=== PATIENT | male | born 1975 | race Caucasian/White ===

== ENCOUNTER 2017-03-03 22:53 | Emergency (ER) | payer BC, OTHER ==
[2017-03-03 23:05] VITALS: BP 130/92; PULSE 74; TEMP 97.7; BMI 26.9
--- NOTE | 2017-03-03 23:38 | PDOC ---
History of Present Illness - General Chief Complaint: Pain, Acute Stated Complaint: ABDOMINAL PAIN Time Seen by Provider: 03/03/17 23:37 - History of Present Illness Initial Comments: 03/03/17 23:37 Mr. Metzger is a 41 yo male with a significant past medical history of appendectomy who presents to the emergency department with a 3 day history of dull abdominal pain starting at his belly button and "going up." He says that he has never had pain like this before and that he just wants to get checked out. Denies any other symptoms. The patient denies chest pain, shortness of breath, headache and dizziness. Denies fever, chills, nausea, vomit, diarrhea and constipation. Denies dysuria, frequency, urgency and hematuria. Allergies: codeine, penicillins, sulfa, peanuts Past surgical history: Appendectomy Past History - Past Medical History Allergies/Adverse Reactions: Allergies Allergy/AdvReac Type Severity Reaction Status Date / Time codeine [Codeine] Allergy Verified 03/03/17 23:01 Penicillins Allergy Verified 03/03/17 23:01 Sulfa (Sulfonamide Allergy Verified 03/03/17 23:01 Antibiotics) [Sulfa(Sulfonamide Antibiotics)] peanuts AdvReac Severe Swelling Uncoded 03/03/17 23:01 Home Medications: Ambulatory Orders Calcium Carbonate [Tums] 200 mg PO ASDIR 03/03/17 - Surgical History Appendectomy: Yes - Suicide/Smoking/Psychosocial Hx Smoking Status: No Smoking History: Never smoked Have you smoked in the past 12 months: No Number of Cigarettes Smoked Daily: 0 Hx Alcohol Use: No Substance Use Type: None Review of Systems - Review of Systems Comments:: 03/03/17 23:38 GENERAL/CONSTITUTIONAL: No fever or chills. No weakness. HEAD, EYES, EARS, NOSE AND THROAT: No change in vision. No ear pain or discharge. No sore throat. CARDIOVASCULAR: No chest pain or shortness of breath RESPIRATORY: No cough, wheezing, or hemoptysis. GASTROINTESTINAL: +Adbominal pain at umbilicus and abdove. No nausea, vomiting, diarrhea or constipation. GENITOURINARY: No dysuria, frequency, or change in urination. MUSCULOSKELETAL: No joint or muscle swelling or pain. No neck or back pain. SKIN: No rash NEUROLOGIC: No headache, vertigo, loss of consciousness, or change in strength/ sensation. ENDOCRINE: No increased thirst. No abnormal weight change HEMATOLOGIC/LYMPHATIC: No anemia, easy bleeding, or history of blood clots. ALLERGIC/IMMUNOLOGIC: No hives or skin allergy. *Physical Exam - Vital Signs Last Vital Signs Temp Pulse Resp BP Pulse Ox 97.7 F 74 18 130/92 99 03/03/17 23:05 03/03/17 23:05 03/03/17 23:05 03/03/17 23:05 03/03/17 23:05 - Physical Exam Comments: 03/03/17 23:38 GENERAL: Awake, alert, and fully oriented, in no acute distress HEAD: No signs of trauma, normocephalic, atraumatic EYES: PERRLA, EOMI, sclera anicteric, conjunctiva clear ENT: Auricles normal inspection, hearing grossly normal, nares patent, oropharynx clear without exudates. Moist mucosa NECK: Normal ROM, supple, no lymphadenopathy, JVD, or masses LUNGS: No distress, speaks full sentences, clear to auscultation bilaterally HEART: Regular rate and rhythm, normal S1 and S2, no murmurs, rubs or gallops, peripheral pulses normal and equal bilaterally. ABDOMEN: +Minimally tender diffusely. Soft, normoactive bowel sounds. No guarding, no rebound. No masses EXTREMITIES: Normal inspection, Normal range of motion, no edema. No clubbing or cyanosis. NEUROLOGICAL: Cranial nerves II through XII grossly intact. Normal speech, normal gait, no focal sensorimotor deficits SKIN: Warm, Dry, normal turgor, no rashes or lesions noted. ED Treatment Course - LABORATORY CBC & Chemistry Diagram: 03/04/17 00:00 03/04/17 00:00 Medical Decision Making - Medical Decision Making 03/04/17 01:40 Mr. Metzger presents with 3 days of dull abdominal ache unrelieved by OTC medications. Labs and UA clear as below. GI cocktail administered. 03/04/17 01:59 Patient achieved some relief of symptoms with GI cocktail, would like to go home. Will discharge with instructions to f/u as needed with PCP outpatient. Laboratory Results - last 24 hr 03/04/17 03/04/17 03/04/17 00:00 00:00 01:00 WBC 5.9 RBC 4.73 Hgb 14.9 Hct 43.3 MCV 91.5 MCH 31.6 MCHC 34.5 RDW 12.5 Plt Count 221 MPV 8.5 Neutrophils % 58.3 Lymphocytes % 28.3 D Monocytes % 10.2 Eosinophils % 2.8 Basophils % 0.4 Sodium 139 Potassium 4.3 Chloride 101 Carbon Dioxide 30 Anion Gap 8 BUN 17 D Creatinine 1.2 Creat Clearance w eGFR > 60 Random Glucose 103 Calcium 9.5 Total Bilirubin 0.6 D AST 13 L ALT 27 Alkaline Phosphatase 67 D Total Protein 7.1 Albumin 3.9 Lipase 179 Urine Color Straw Urine Appearance Clear Urine pH 7.0 Urine Protein Negative Urine Glucose (UA) Negative Urine Ketones Negative Urine Blood Negative Urine Nitrite Negative Urine Bilirubin Negative Urine Urobilinogen Negative *DC/Admit/Observation/Transfer Diagnosis at time of Disposition: Gastroesophageal reflux disease Qualifiers: Esophagitis presence: esophagitis presence not specified Qualified Code(s): K21.9 - Gastro-esophageal reflux disease without esophagitis; K21.9 - Gastro- esophageal reflux disease without esophagitis; K21.9 - Gastro-esophageal reflux disease without esophagitis - Discharge Dispostion Disposition: HOME - Patient Instructions Printed Discharge Instructions: DI for Gastroesophageal Reflux Disease (GERD)
--- NOTE | 2017-03-03 23:47 | PDOC ---
Attending Attestation - HPI HPI: 03/03/17 23:53 41yo M with a significant past medical history of appendectomy, and presents to the emergency department with abdominal pain for 4 days. He reports the pain is dull, and located at the belly radiating up. He states he has taken Tums and Zantac with no significant relief. He denies any changes in his diet or bowel movements. The patient denies chest pain, shortness of breath, headache and dizziness. The patient denies fever, chills, nausea, vomit, diarrhea and constipation. The patient denies dysuria, frequency, urgency and hematuria. Allergies: codeine, penicillins, sulfa, peanuts Past Surgical History: appendectomy Social History: No toxic habits reported PCP: Dr. Zackery Chapa <Aura Dawson - Last Filed: 03/03/17 23:53> - Resident Resident Name: TejasManuel tejeda - ED Attending Attestation I have performed the following: I have examined & evaluated the patient, The case was reviewed & discussed with the resident, I agree w/resident's findings & plan, Exceptions are as noted - Physicial Exam PE: 03/04/17 02:00 *Physical Exam General Appearance: Yes: Appropriately Dressed. No: Apparent Distress, Intoxicated HEENT: positive: EOMI, ISABELLA, Normal ENT Inspection, Normal Voice, TMs Normal, Pharynx Normal. negative: Pale Conjunctivae, Photophobia, Scleral Icterus (R), Scleral Icterus (L) Neck: positive: Trachea midline, Normal Thyroid, Supple. negative: Tender, Rigid, Carotid bruit, Stridor, Lymphadenopathy (R), Lymphadenopathy (L), Thyromegaly Respiratory/Chest: positive: Lungs Clear, Normal Breath Sounds. negative: Chest Tender, Respiratory Distress, Accessory Muscle Use, Labored Respiration, RES, Crackles, Rales, Rhonchi, Stridor, Wheezing, Dullness Cardiovascular: positive: Regular Rhythm, Regular Rate, S1, S2. negative: Edema , JVD, Murmur, Bradycardia, Tachycardia Vascular Pulses: Dorsalis-Pedis (R): 2+, Doralis-Pedis (L): 2+ Gastrointestinal/Abdominal: positive: Normal Bowel Sounds, Flat, Soft. negative : Tender, Organomegaly, Pulsatile Mass, Increased Bowel Sounds, Decreased BS, Distended, Guarding, Rebound, Hernia, Hepatomegaly, Spleenomegaly Lymphatic: negative: Adenopathy, Tenderness Musculoskeletal: positive: Normal Inspection. negative: CVA Tenderness, Decreased Range of Motion Extremity: positive: Normal Capillary Refill, Normal Inspection, Normal Range of Motion, Pelvis Stable. negative: Tender, Pedal Edema, Swelling, Erythema Integumentary: positive: Normal Color, Dry, Warm. negative: Cyanotic, Erythema , Jaundice, Rash Neurologic: positive: folding machine setter II-XII NML intact, Fully Oriented, Alert, Normal Mood/ Affect, Motor Strength 5/5. negative: EOM Palsy, Facial Droop, Sensory Deficit <Rl Rios - Last Filed: 03/04/17 02:01>
[2017-03-03] MEDS ORDERED: SODIUM CHLORIDE 1,000 ML IV STA (23:48)
[2017-03-04 00:17] LABS: BASOPHIL 0.4 % (0-2.0); EOSINOPHIL 2.8 % (0-4.5); MCH 31.6 pg (25.7-33.7); MCHC 34.5 g/dl (32.0-35.9); MEAN CELL VOLUME 91.5 fl (80-96); MEAN PLT VOLUME 8.5 fl (7.5-11.1); NEUTROPHILS 58.3 % (42.8-82.8); PLATELET COUNT 221 K/MM3 (134-434); RDW 12.5 % (11.9-15.9); WHITE BLOOD COUNT 5.9 K/mm3 (4.0-10.0)
[2017-03-04 00:41] LABS: ALBUMIN 3.9 g/dl (3.4-5.0); ALK PHOS 67 U/L (45-117); ANION GAP 8 (8-16); BILIRUBIN,TOTAL 0.6 mg/dL (0.2-1.0); CALCIUM 9.5 mg/dL (8.5-10.1); CO2 30 mmol/L (21-32); CREATININE 1.2 mg/dL (0.7-1.3); GLUCOSE,RANDOM 103 mg/dL (74-106); SGOT/AST 13 U/L (15-37); SGPT/ALT 27 U/L (12-78); TOT PROT 7.1 g/dl (6.4-8.2)
[2017-03-04 01:20] LABS: URINE APPEARANCE CLEAR; URINE BILIRUBIN NEGATIVE (NEGATIVE); URINE BLOOD NEGATIVE (NEGATIVE); URINE COLOR STRAW; URINE GLUCOSE (UA) NEGATIVE (NEGATIVE); URINE KETONE NEGATIVE (NEGATIVE); URINE NITRITE NEGATIVE (NEGATIVE); URINE PROTEIN NEGATIVE (NEGATIVE); URINE UROBILINOGEN NEGATIVE mg/dL (0.2-1.0)
[2017-03-04] MEDS ORDERED: LIDOCAINE VISCOUS 2% ORAL/TOP 20 ML UNIT-DOSE CUP MM ONE (01:25)
[2017-03-04] MEDS ORDERED: RANITIDINE HCL 150 MG/10 ML UNIT-DOSE PO ONE (01:25)
[2017-03-04] MEDS ORDERED: MAG HYDROX/AL HYDROX/SIMETH 30 ML UNIT-DOSE CUP PO ONE (01:25)
[2017-03-04] MEDS ORDERED: RANITIDINE HCL 150 MG TABLET (FP) ONE (01:42)
[2017-03-04] MEDS ORDERED: LIDOCAINE VISCOUS 2% ORAL/TOP 20 ML UNIT-DOSE CUP ONE (01:42)
[2017-03-04] MEDS ORDERED: MAG HYDROX/AL HYDROX/SIMETH 30 ML UNIT-DOSE CUP ONE (01:42)
[2017-03-04 09:57] LABS: URINE LEUK ESTERASE Negative (NEGATIVE)
== END 2017-03-04 02:03 | disposition home or self-care (01) ==
LOC: JER 22:53
PROC: 3E0337Z Introduction of Electrolytic and Water Balance Substance into Peripheral Vein, Percutaneous Approach (ICD-10-PCS; principal; 2017-03-03)
DX: K21.9 Gastro-esophageal reflux disease without esophagitis (principal)
CPT/HCPCS: 36415; 80053; 81003; 83690; 85025; 99282-25